=== PATIENT | female | born 1970 | race Caucasian/White ===

== ENCOUNTER 2017-12-29 14:05 | Emergency (ER) | payer OTHER ==
[~2017-12-29] VITALS: Ht 161 cm; Wt 52.6 kg
--- NOTE | 2017-12-29 15:43 | CT SCAN REPORT ---
EXAMINATION: CT HEAD WITHOUT CONTRAST CLINICAL INFORMATION: Severe headache. History of migraines. COMPARISON: No relevant prior imaging. TECHNIQUE: Contiguous axial imaging was performed from the skull base to vertex without intravenous administration of contrast. DLP: 599.71 mGy-cm FINDINGS: There is no acute intracranial hemorrhage or abnormal extra-axial collection. No intracranial mass effect or midline shift. No abnormal extra axial collection. Lateral and third ventricles are normal. No hydrocephalus. Castano-white matter differentiation is grossly preserved and there is no evidence of acute territorial infarct. The calvarium and skull base are intact. Mastoid air cells and middle ear cavities are well-aerated. Visualized paranasal sinuses are well-aerated. Globes and orbits are symmetric. IMPRESSION: Unremarkable CT scan of the head. No evidence of acute territorial infarct or hemorrhage.
--- NOTE | 2017-12-29 15:56 | ED GENERAL ADULT ---
History of Present Illness General Chief Complaint: Nausea, Vomiting, Diarrhea Stated Complaint: MAIN, +NVD Source: patient Exam Limitations: no limitations Vital Signs & Intake/Output Vital Signs & Intake/Output Vital Signs Date Time Temp Pulse Resp B/P B/P Pulse O2 O2 Flow FiO2 Mean Ox Delivery Rate 12/29 1748 87 18 120/78 97 Room Air 12/29 1408 96.6 76 18 149/95 97 Room Air Room Air ED Intake and Output 12/30 0000 12/29 1200 Intake Total Output Total Balance Patient 116 lb Weight Weight Reported by Patient Measurement Method Allergies Coded Allergies: No Known Allergies (12/29/17) Reconcile Medications Ibuprofen 800 MG TABLET 1 TAB PO TID PRN PAIN Metoclopramide HCl (Reglan) 10 MG TABLET 1 TAB PO 4 TIMES/DAY PRN HEADACHE/ NAUSEA 30 minutes before meals and bedtime Triage Note: PT TO ED VIA AMBULANCE FROM WALK IN CLINIC WITH C/O MIGRAINE HEADACHE AND NAUSEA. Triage Nurses Notes Reviewed? yes Onset: Abrupt Duration: day(s): (1), constant, continues in ED, getting worse Timing: recent history Injury Environment: home Severity: moderate, severe Severity Numbers: 8 No Modifying Factors: none LMP (ages 10-50): now : No Patient currently breastfeeds: No HPI: 47-year-old female history of migraine headaches present for evaluation of headache and nausea. Patient reports this current headache started around 3 AM last night and has been persistent. She reports a global headache described as pressure. It is similar to previous headaches but is more severe. She reports associated nausea and vomiting. She reports that for the past 5 years she has been having similar headaches almost daily. She has not been evaluated by headache specialist. She is not taking any medicine for this. She reports some associated weakness and fatigue. No dizziness lightheadedness changes in vision fever or neck pain head trauma one sided weakness or slurred speech. She is not taking blood thinners. (Justyn Valadez) Past History Travel History Traveled to [place] past 21 day No Medical History Any Pertinent Medical History? 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 No (Justyn Valadez) Review of Systems Review of Systems Constitutional: Reports: no symptoms. EENTM: Reports: no symptoms. Respiratory: Reports: no symptoms. Cardiovascular: Reports: no symptoms. GI: Reports: see HPI, nausea, vomiting. Genitourinary: Reports: no symptoms. Musculoskeletal: Reports: no symptoms. Skin: Reports: no symptoms. Neurological/Psychological: Reports: see HPI, headache. Hematologic/Endocrine: Reports: no symptoms. Immunologic/Allergic: Reports: no symptoms. All Other Systems: Reviewed and Negative (Justyn Valadez) Physical Exam Physical Exam General Appearance: well developed/nourished, no apparent distress, alert, awake Head: atraumatic, normal appearance Eyes: Bilateral: normal appearance, PERRL, EOMI. Ears, Nose, Throat: normal pharynx, normal ENT inspection, hearing grossly normal Neck: normal inspection, supple, full range of motion Respiratory: normal breath sounds, chest non-tender, no respiratory distress, lungs clear Cardiovascular: regular rate/rhythm, normal peripheral pulses Peripheral Pulses: 2+ radial (R), 2+ radial (L) Gastrointestinal: normal bowel sounds, soft, non-tender, no organomegaly Back: normal inspection, normal range of motion, no vertebral tenderness Extremities: normal inspection, normal range of motion, no edema Neurologic/Psych: no motor/sensory deficits, awake, alert, oriented x 3, normal gait Skin: intact, normal color, warm/dry Lymphatic: no anterior cervical janell Core Measures ACS in differential dx? No CVA/TIA Diagnosis: No Sepsis Present: No Sepsis Focused Exam Completed? No (Justyn Valadez) Progress Differential Diagnoses I considered the following diagnoses in my evaluation of the patient: [Migraine headache, cluster headache, tension headache, intracranial hemorrhage, intracranial mass, concussion, electrolyte abnormality, dehydration, meningitis] Plan of Care: Orders Procedure Date/time Status TSH REFLEX 12/29 1608 Complete PARTIAL THROMBOPLASTIN TIME 12/29 1608 Complete PROTHROMBIN TIME 12/29 1608 Complete COMPREHENSIVE METABOLIC PANEL 12/29 1608 Complete CBC WITHOUT DIFFERENTIAL 12/29 1608 Complete URINE 12/29 1411 Complete Laboratory Tests 12/29/17 1626: Anion Gap 8, Estimated GFR > 60, BUN/Creatinine Ratio 20.0, Glucose 125 H, Calcium 8.7, Total Bilirubin 0.3, AST 23, ALT 24, Alkaline Phosphatase 53, Total Protein 6.5, Albumin 3.8, Globulin 2.7, Albumin/Globulin Ratio 1.4, TSH &T3 & Free T4 Intrp 2.960, PT 11.8, INR 1.08, APTT 34, CBC w Diff NO MAN DIFF REQ, RBC 4.22, MCV 90.0, MCH 30.3, MCHC 33.6, RDW 15.9 H, MPV 7.2 L, Gran % 87.9 H, Lymphocytes % 9.7 L, Monocytes % 2.4, Eosinophils % 0, Basophils % 0, Absolute Granulocytes 5.6, Absolute Lymphocytes 0.6 L, Absolute Monocytes 0.2, Absolute Eosinophils 0, Absolute Basophils 0 12/29/17 1420: Urine Test NEGATIVE Patient is here with a headache. This headache has been recurrent. She reports almost daily headaches for the past 5 years. This headache is similar in distribution but is much more severe. Vital signs are stable she's neurologically intact. She received Reglan and IV Tylenol at triage and lungs and IV fluids. She is feeling much better. Labs CT head ordered. Patient will be reevaluated. Head CT is negative. All blood work is within normal limits. Patient continues to report improvement in her pain. She is able tolerate food and fluids. Patient will be discharged with a prescription for Reglan and ibuprofen. She'll be referred to a neurologist. Advised her that she needs to follow-up in order to address these recurrent chronic headaches. Discussed return precautions in detail patient agrees the plan Diagnostic Imaging: Viewed by Me: CT Scan. Discussed w/RAD: CT Scan. Radiology Impression: PATIENT: MONICA WILKINS PRESENT AGE: 47 PATIENT ACCOUNT NO: [id number] : 70 LOCATION: [facility], [place] ORDERING PHYSICIAN: Jose BLANTON SERVICE DATE: 12/29/17 EXAM TYPE : CAT - CT HEAD WO IV CONTRAST EXAMINATION: CT HEAD WITHOUT CONTRAST CLINICAL INFORMATION: Severe headache. History of migraines. COMPARISON: No relevant prior imaging. TECHNIQUE: Contiguous axial imaging was performed from the skull base to vertex without intravenous administration of contrast. DLP: 599.71 mGy- cm FINDINGS: There is no acute intracranial hemorrhage or abnormal extra-axial collection. No intracranial mass effect or midline shift. No abnormal extra axial collection. Lateral and third ventricles are normal. No hydrocephalus. Castano-white matter differentiation is grossly preserved and there is no evidence of acute territorial infarct. The calvarium and skull base are intact. Mastoid air cells and middle ear cavities are well-aerated. Visualized paranasal sinuses are well-aerated. Globes and orbits are symmetric. IMPRESSION: Unremarkable CT scan of the head. No evidence of acute territorial infarct or hemorrhage. DICTATED BY: Stephen Corcoran MD DATE/TIME DICTATED:12/29/171537 WATER PURIFIER:SANGITA DATE/TIME TRANSCRIBED:12/29/171537 CONFIDENTIAL, DO NOT COPY WITHOUT APPROPRIATE AUTHORIZATION. <Electronically signed in Other Vendor System> SIGNED BY: Stephen Corcoran MD 12/29/17 1543 Initial ED EKG: none (Justyn Valadez) Departure Departure Disposition: HOME OR SELF CARE Condition: Stable Clinical Impression Primary Impression: Headache Qualifiers: Headache type: unspecified Headache chronicity pattern: acute headache Intractability: not intractable Qualified Code: R51 - Headache Referrals: Patient Has No Primary Care Dr (PCP/Family) Additional Instructions: CONTIUE REGLAN NEEDED FOR HEADACHE AND NAUSEA. IBUPROFEN FOR PAIN/HEADACHE. FOLLOW UP WITH PROVIDED NEUROLOGIST FOR FURTHER EVAL OF HEADACHES. ALSO FOLLOW UP WITH YOUR PRIMARY CARE DOCTOR AND OBGYN. RETURN WITH ANY CONCERNS. Departure Forms: Customer Survey General Discharge Information Prescriptions: Current Visit Scripts Metoclopramide HCl (Reglan) 1 TAB PO 4 TIMES/DAY PRN HEADACHE/NAUSEA #30 TAB 30 minutes before meals and bedtime Ibuprofen 1 TAB PO TID PRN PAIN #30 TAB (Justyn Valadez) PA/BRIDGE TENDER Co-Sign Statement Statement: ED Attending supervision documentation- [] I saw and evaluated the patient. I have also reviewed all the pertinent lab results and diagnostic results. I agree with the findings and the plan of care as documented in the PA's/BRIDGE TENDER's documentation. [x] I have reviewed the ED Record and agree with the PA's/BRIDGE TENDER's documentation. [] Additions or exceptions (if any) to the PAs/BRIDGE TENDER's note and plan are summarized below: [] (Jewel Mckeon DO) Critical Care Note Critical Care Note Critical Care Time: non-applicable (Satish BLANTON,Justyn)
[2017-12-29 16:35] LABS: ABSOLUTE BASOPHIL COUNT 0 /CUMM (0.0-0.2); ABSOLUTE EOSINOPHIL COUNT 0 /CUMM (0.0-0.7); ABSOLUTE GRANULOCYTE CT 5.6 /CUMM (1.4-6.5); ABSOLUTE LYMPH COUNT 0.6 /CUMM (1.2-3.4); ABSOLUTE MONOCYTE COUNT 0.2 /CUMM (0.10-0.60); BASOPHIL % 0 % (0.0-2.0); EOSINOPHIL % 0 % (0-5); MEAN CORPUSCULAR HGB 30.3 PG (27.0-31.0); MEAN CORPUSCULAR HGB CONC 33.6 G/DL (33.0-37.0); MEAN PLATELET VOLUME 7.2 FL (7.4-10.4); PLATELET COUNT 262 /CUMM (130-400); RBC DISTRIBUTION WIDTH 15.9 % (11.5-14.5); RED BLOOD CELL CT 4.22 /CUMM (4.20-5.40); WHITE BLOOD CELL COUNT 6.4 /CUMM (4.8-10.8)
[2017-12-29 16:42] LABS: PT 11.8 SEC (9.4-12.5); PTT 34 SEC (25-37)
[2017-12-29 17:15] LABS: GRANULOCYTE % 87.9 % (42.2-75.2)
[2017-12-29] MEDS ORDERED: REGLAN10 M1 PO (17:38)
[2017-12-29] MEDS ORDERED: IBUPROFEN800 M1 PO (17:38)
== END 2017-12-29 17:51 ==
LOC: ERH 14:05
PROVIDERS: Physician Assistant Medical
DX: R51 Headache (principal)
CPT/HCPCS: 81025; 96374; 96375; J0131; J1200; J2765